=== PATIENT | male | born 1995 | race Caucasian/White ===

== ENCOUNTER 2016-05-12 16:08 | Emergency (ER) | payer OTHER ==
[~2016-05-12] VITALS: Wt 90.0 kg
[2016-05-12] MEDS ORDERED: IBUP-1542 PO (17:53)
[2016-05-12] MEDS ORDERED: AMOX1TAB10 PO (17:54)
--- NOTE | 2016-05-12 18:00 | ERD ---
ER Documentation Chief Complaint Date/Time DATE: 05/12/16 TIME: 17:54 Chief Complaint LEFT SIDE DENTAL PAIN FOR 1 YEAR. GETTING WORSE. HPI Patient is a 20-year-old male who presents to the emergency department with tooth pain 1 year. Patient states that this pain has been getting significantly worse over the last week. Patient states his current pain is 10/ 10. Patient reports taking Excedrin yesterday which did alleviate some of the pain. Patient describes the pain to be throbbing. Patient states that he has seen a dentist in the past and states he knows he needs to have a root canal however he does not have insurance. Patient denies any fever, chills, nausea, vomiting, abdominal pain, chest pain, shortness of breath. He denies any drooling, trismus, muffled voice, or hyperextension of the neck. ROS All systems reviewed and are negative except as per history of present illness. Medications Home Meds Active Scripts Amoxicillin/Potassium Clav (Amox-Clav 875-125 mg Tablet) 875-125 mg Tab, 1 TAB PO BID for 10 Days, #20 TAB Prov:JERMAINE PAZ PA-C 05/12/16 Ibuprofen* (Motrin*) 600 Mg Tab, 600 MG PO Q6, #30 TAB Prov:JERMAINE PAZ PA-C 05/12/16 PMhx/Soc Medical and Surgical Hx: pt denies Medical Hx, pt denies Surgical Hx Hx Alcohol Use: Yes Hx Substance Use: Yes (marijuana) Hx Tobacco Use: Yes Physical Exam Vitals Vital Signs Date Time Temp Pulse Resp B/P Pulse Ox O2 Delivery O2 Flow Rate FiO2 05/12/16 16:15 98.8 80 21 129/68 98 Physical Exam GENERAL: Well-developed, well-nourished male. Appears in no acute distress. HEAD: Normocephalic, atraumatic. No deformities or ecchymosis. EYE: Pupils equal, round, and reactive to light. EOMs intact. No conjunctival erythema. No scleral icterus. No eye discharge. ENT: External ear without any masses or tenderness. Auditory canals clear bilaterally. TM visualized bilaterally, non-erythematous, non-bulging. Nasal mucosa pink with no discharge. Oropharynx is pink without any tonsillar erythema or exudates. No uvula deviation. No kissing tonsils. No trismus. No drooling. Poor dentition. + Dental caries noted to left lower molars. Gums appear erythematous and swollen. Tender to palpation of affected teeth. NECK: Supple. Normal range of motion of the neck. No hyperextension of the neck. LUNG: Clear to auscultation bilaterally. No rhonchi, wheezing, rales or coarse breath sounds. HEART: Regular rate and rhythm. No murmurs, rubs or gallops. EXTREMITES: Equal pulses bilaterally. No peripheral clubbing, cyanosis or edema. No unilateral leg swelling. NEUROLOGIC: Alert and oriented to person, place and time. Moving all four extremities. 5/5 strength in all extremities. Normal speech. Steady gait. SKIN: Normal color. Warm and dry. No rashes or lesions. Procedures/MDM MEDICAL DECISION MAKING: This is a 20-year-old male who presents with tooth pain 1 year. Vital signs were reviewed. Patient was afebrile. Patient was not hypoxic. The patient did not have trismus, muffled voice, uvula deviation, unilateral tonsillar swelling , or drooling. No signs of neck swelling or hyperextension of the neck noted. Dental caries were noted to the left lower molars. Given these findings, the patients presentation is most consistent with dental caries. I have a much lower clinical suspicion for epiglottitis, strep pharyngitis, peritonsillar abscess, retropharyngeal abscess, Ludwigs angina, bleeding dental socket, periodontal abscess, ulcerative gingivitis, dental trauma. PRESCRIPTIONS: Augmentin Ibuprofen for fever/pain control. DISCHARGE: At this time, patient is stable for discharge and outpatient management. I have instructed the patient to see a dentist tomorrow. Referral nformation provided. I have instructed the patient to promptly return to the ER at any time for any new or worsening symptoms including increased pain, fever, swelling, neck swelling, neck stiffness, drooling or difficulty breathing. The patient and/or family expressed understanding of and agreement with this plan. All questions were answered. Home care instructions were provided. Departure Diagnosis: Primary Impression: Dental caries Additional Impression: Pain, dental Condition: Stable Patient Instructions: Dental Pain Referrals: COMMUNITY CLINICS YOU HAVE RECEIVED A MEDICAL SCREENING EXAM AND THE RESULTS INDICATE THAT YOU DO NOT HAVE A CONDITION THAT REQUIRES URGENT TREATMENT IN THE EMERGENCY DEPARTMENT. FURTHER EVALUATION AND TREATMENT OF YOUR CONDITION CAN WAIT UNTIL YOU ARE SEEN IN YOUR DOCTORS OFFICE WITHIN THE NEXT 1-2 DAYS. IT IS YOUR RESPONSIBILITY TO MAKE AN APPOINTMENT FOR FOLOW-UP CARE. IF YOU HAVE A PRIMARY DOCTOR --you should call your primary doctor and schedule an appointment IF YOU DO NOT HAVE A PRIMARY DOCTOR YOU CAN CALL OUR PHYSICIAN REFERRAL HOTLINE AT IF YOU CAN NOT AFFORD TO SEE A PHYSICIAN YOU CAN CHOSE FROM THE FOLLOWING [facility] [address] [facility] [address] [facility] [address] [facility] [address] [facility] [address] [facility]. [facility] [address] [facility]. [facility] YOU HAVE RECEIVED A MEDICAL SCREENING EXAM AND THE RESULTS INDICATE THAT YOU DO NOT HAVE A CONDITION THAT REQUIRES URGENT TREATMENT IN THE EMERGENCY DEPARTMENT. FURTHER EVALUATION AND TREATMENT OF YOUR CONDITION CAN WAIT UNTIL YOU ARE SEEN IN YOUR DOCTORS OFFICE WITHIN THE NEXT 1-2 DAYS. IT IS YOUR RESPONSIBILITY TO MAKE AN APPOINTMENT FOR FOLOW-UP CARE. IF YOU HAVE A PRIMARY DOCTOR --you should call your primary doctor and schedule and appointment IF YOU DO NOT HAVE A PRIMARY DOCTOR YOU CAN CALL OUR PHYSICIAN REFERRAL HOTLINE AT . IF YOU CAN NOT AFFORD TO SEE A PHYSICIAN YOU CAN CHOSE FROM THE FOLLOWING [facility] INSTITUTIONS: [facility] [address] [place] [address] [facility] [address] [place] [address] [facility] + [facility] [address] [place] [address] [facility] walk in clinic) Additional Instructions: FOLLOW UP WITH YOUR DENTIST TOMORROW.Return to this facility if you are not improving as expected. JERMAINE PAZ PA-C May 12, 2016 18:00
== END 2016-05-12 18:00 | disposition home or self-care (01) ==
LOC: E/R 16:08
DX: K02.9 Dental caries, unspecified (principal); Z87.891 Personal history of nicotine dependence
CPT/HCPCS: 99283